=== PATIENT | female | born 1990 | race Caucasian/White ===

== ENCOUNTER 2024-02-03 23:35 | Inpatient (IN) | payer OTHER ==
[~2024-02-03] VITALS: Ht 165.1 cm; Wt 106.8 kg
[~2024-02-03 23:35] MED LIST: ACYC800; ALBU3IS INH; ALBU90OI INH; CEPH500 PO; CIPR500 PO; DOXY100 PO; HYDACE5 PO; HYDACE5325 PO; MAGCIT300 PO; METR500 PO; NAPR500 PO; ONDA4 PO; PENVK500 PO; PHENA100 PO; PRED20 PO; PROM25 PO; RXCLIN PO; RXHYDACE PO; SULTRIDS PO; TRAM50 PO
[2024-02-04] VITALS (21 sets, daily range): BP systolic 107–145; BP diastolic 59–97
[2024-02-04 00:08] LABS: BASOPHILS ABSOLUTE AUTO 0.06 K/mm3 (0.00-0.23); BASOPHILS PERCENT AUTO 0 % (0-2); EOSINOPHILS PERCENT AUTO 0 % (0-6); Hematocrit 38.8 % (33.0-51.0); Hemoglobin 13.3 g/dL (11.5-16.0); IMMATURE GRAN ABSOLUTE AUTO 0.12 K/mm3 (0.00-0.10); IMMATURE GRAN PERCENT AUTO 1 % (0-1); LYMPHOCYTES ABSOLUTE AUTO 1.12 K/mm3 (0.84-5.20); LYMPHOCYTES PERCENT AUTO 7 % (21-46); MONOCYTES ABSOLUTE AUTO 0.33 K/mm3 (0.16-1.47); MONOCYTES PERCENT AUTO 2 % (4-13); Mean Corpuscular HGB 29.6 pg (26.0-34.0); Mean Corpuscular HGB Conc 34.3 g/dL (31.5-36.5); Mean Corpuscular Volume 86 fL (80-100); Mean Platelet Volume 10.6 fL (9.1-12.4); NEUTROPHILS ABSOLUTE AUTO 13.78 K/mm3 (1.96-9.15); NEUTROPHILS PERCENT AUTO 89 % (41-73); Platelet Count 184 K/mm3 (150-400); RDW Coefficient Variation 12.5 % (11.7-14.2); RDW Standard Deviation 39.8 fL (35.1-46.3); White Blood Cell Count 15.41 K/mm3 (4.00-11.30)
[2024-02-04 00:51] LABS: Albumin, Blood 2.9 g/dL (3.4-5.0); Albumin/Globulin Ratio 0.6 (0.8-1.8); Bilirubin, Total 1.1 mg/dL (0.1-1.0); Bun/Creatinine Ratio 14.7 (12.0-20.0); Calcium, Blood 8.5 mg/dL (8.5-10.1); Creatinine, Blood 0.68 mg/dL (0.40-1.00); Potassium, Blood 4.5 mmol/L (3.5-5.5); Total Protein, Blood 7.9 g/dL (6.4-8.2)
[2024-02-04] MEDS ORDERED: NS 1,000 ML IV SCH ×2 (00:55→06:00)
[2024-02-04] MEDS ORDERED: Piperacillin/Tazobactam Sod 4.5 GM in NS 100 ML IV ONE (00:55)
[2024-02-04] MEDS ORDERED: Vancomycin HCL 2,000 MG in NS 500 ML IV ONE ×2 (00:55→01:00)
[2024-02-04] MEDS ORDERED: Ondansetron HCl 2 MG / ML 2ML Vial ONE (01:31)
[2024-02-04] MEDS ORDERED: Ondansetron HCl 2 MG / ML 2ML Vial IV ONE (01:35)
[2024-02-04 02:55] LABS: Source, Urine Clean Catch
[2024-02-04 02:58] LABS: Bilirubin, Urine Neg (Neg); Blood, Urine 1+ (Neg); Glucose Qualitative, Urine Neg (Neg); Ketones, Urine Neg (Neg); Leukocyte Esterase, Urine 2+ (Neg); Nitrite, Urine Pos (Neg); Protein, Urine Neg (Neg); Urobilinogen, Urine NORM (Normal)
[2024-02-04 03:03] LABS: Appearance, Urine Clear (Clear); Color, Urine Yellow (P-Yellow)
[2024-02-04 03:14] LABS: Bacteria Mod /hpf; Red Blood Cells, Urine 0-2 /hpf (0-2); Squamous Epithelial Cells Not Seen /hpf (Few); White Blood Cells, Urine 25-50 /hpf (0-5)
[2024-02-04 03:15] LABS: U Amphetamine Screen DETECTED; U Barbituate Screen Not Detected; U Benzodiazapine Screen Not Detected; U Buprenorphine Screen Not Detected; U Cannabinoids Screen Not Detected; U Cocaine Screen Not Detected; U Methadone Screen Not Detected; U Methamphetamine Screen DETECTED; U Opiates Screen Not Detected; U Oxycodone Screen Not Detected; U Phencyclidine Screen Not Detected
[2024-02-04] MEDS ORDERED: Ondansetron 4 MG TAB PO PRN (04:05)
[2024-02-04] MEDS ORDERED: Acetaminophen 325 MG TABLET PO PRN (04:10)
[2024-02-04] MEDS ORDERED: NS 1,000 ML IV ONE (05:00)
[2024-02-04] MEDS ORDERED: FentaNYL Citrate 50 MCG/ML 2 ML Injection IV PRN (05:50)
[2024-02-04] MEDS ORDERED: Naloxone HCl 0.4MG / ML 1ML Vial IV PRN (05:50)
[2024-02-04] MEDS ORDERED: OxyCODONE HCL 5 MG TAB PO PRN (05:50)
[2024-02-04] MEDS ORDERED: Ketorolac Tromethamine 15mg Vial IV PRN (05:55)
[2024-02-04] MEDS ORDERED: Nicotine 14 MG PATCH TOP SCH (06:00)
--- NOTE | 2024-02-04 06:36 | NUR ---
ARRIVAL TO ICU PT ARRIVED TO ICU 6 AT 0510 VIA ED BED AND WAS ABLE TO AMBULATE TO ICU BED SAFELY. ADMIT FOR CELULITIS OF LLE. SHE IS A/O X4 AND ABLE TO MAKE HER NEEDS KNOWN; FALLS ALSEEP EASILY. SPO2 >98% ON RA. AFEBRILE. HR 90'S. SBP 110'S WITH MAP >65. MILD NAUSEA NOTED. CURRENTLY ON MENSES. CURRENTLY STATING 8/10 PAIN TO LLE; CALL MADE TO DR DUNAWAY WHO PROVIDED ORDERS FOR PRN'S. LLE REDNESS NOTED, AREAS ARE RAISED AND HOT TO TOUCH; PREVIOUS PROVIDER OUTLINED AREA ON LT UPPER THIGH AND IT HAS NOT CHANGED. A VARIETY OF OTHER SCABS AND SCARS NOTED T/O BLE AND BUE. PT STATES THAT SHE USES "STREET" F[facility] OF UNKNOWN QUANTITY EVERY FEW HOURS. CURRENTLY DECLINES NEEDING NICOTINE PATCH; NO LIGHTERS ON PT. CHALLENGING TO ESTABLISH IV ACCESS. POWERGLIDE TO LUE PLACED IN ED AND UNABLE TO DRAW LABS; THE DRESSING CHANGED AND CATHETER PULLED BACK SLIGHTLY AND IV FLUSHED BETTER BUT CONT TO NOT DRAW BACK ENOUGH BLOOD FOR SAMPLE. ANOTHER RN TRIED A SECOND POWERGLIDE IN HER RUE AND WAS UNSUCESSFUL. SECOND NS BOLUS INFUSING NOW. WILL REPORT TO AM RN WHEN AVAILABLE.
--- NOTE | 2024-02-04 07:13 | NUR ---
CARE ASSUMPTION DURING BEDSIDE SHIFT REPORT WITH AGUEDA VILLEGAS THE PT IS CHINO IN BED RESPONDING TO VOICE W MINIMAL VERBAL RESPONSES. PT IS ALERT AT THIS TIME BUT VERY WITHDRAWN MAINTAINING EYE CONTACT BUT HAS MINIMAL VERBAL RESPONSES TO QUESTION. PT'S LLE ASSESSED AT BEDSIDE W DAYO RN AND EXTENSIVE REDNESS IS WITHIN PREVIOUSLY OUTLINED BORDERS. PT'S SPO2 >94% ON RM AIR. BP WNL AND STABLE. MONITIOR SHOWING SR 90'S. PT HAS STRONG BILATERAL PEDAL PULSES. DR. POWELL CAME TO BEDSIDE TO ASSESS THE PT'S LEG. PROVIDER REQUESTING FOLLOW UP LABS.
[2024-02-04] MEDS ORDERED: Piperacillin/Tazobactam Sod 3.375 GM in NS 100 ML IV SCH (08:00)
[2024-02-04 08:58] LABS: BASOPHILS ABSOLUTE AUTO 0.02 K/mm3 (0.00-0.23); BASOPHILS PERCENT AUTO 0 % (0-2); Hematocrit 34.7 % (33.0-51.0); Hemoglobin 11.8 g/dL (11.5-16.0); LYMPHOCYTES ABSOLUTE AUTO 0.73 K/mm3 (0.84-5.20); LYMPHOCYTES PERCENT AUTO 6 % (21-46); MONOCYTES ABSOLUTE AUTO 0.26 K/mm3 (0.16-1.47); MONOCYTES PERCENT AUTO 2 % (4-13); Mean Corpuscular HGB 29.4 pg (26.0-34.0); Mean Corpuscular Volume 86 fL (80-100); Mean Platelet Volume 9.8 fL (9.1-12.4); Platelet Count 138 K/mm3 (150-400); RDW Coefficient Variation 12.5 % (11.7-14.2); RDW Standard Deviation 39.8 fL (35.1-46.3); Red Blood Cell Count 4.02 M/mm3 (3.80-5.20); White Blood Cell Count 11.78 K/mm3 (4.00-11.30)
[2024-02-04] MEDS ORDERED: Lactobacil 2-S.Thermo-Bifido 1 1 Cap PO SCH (09:00)
[2024-02-04] MEDS ORDERED: NS 250 ML IV PRN (09:00)
[2024-02-04 09:08] LABS: EOSINOPHILS PERCENT AUTO 0 % (0-6); IMMATURE GRAN ABSOLUTE AUTO 0.18 K/mm3 (0.00-0.10); IMMATURE GRAN PERCENT AUTO 2 % (0-1); NEUTROPHILS ABSOLUTE AUTO 10.59 K/mm3 (1.96-9.15); NEUTROPHILS PERCENT AUTO 90 % (41-73)
[2024-02-04 09:16] LABS: Albumin, Blood 2.4 g/dL (3.4-5.0); Albumin/Globulin Ratio 0.6 (0.8-1.8); Bilirubin, Total 0.7 mg/dL (0.1-1.0); Bun/Creatinine Ratio 12.8 (12.0-20.0); Calcium, Blood 7.4 mg/dL (8.5-10.1); Creatinine, Blood 0.63 mg/dL (0.40-1.00); Globulin, Blood 4.1 g/dL (2.2-4.0); Total Protein, Blood 6.5 g/dL (6.4-8.2)
[2024-02-04 09:20] LABS: BAND PERCENT MAN 3 % (0-8); BASOPHILS PERCENT MAN 0 % (0-2); EOSINOPHILS PERCENT MAN 0 % (0-6); LYMPHOCYTES ABSOLUTE MAN 0.47 K/mm3 (0.84-5.20); LYMPHOCYTES PERCENT MAN 4 % (21-46); MONOCYTES PERCENT MAN 0 % (4-13); SEG NEUTROPHILS PERCENT MAN 93 % (41-73); TOTAL CELLS COUNTED 100
[2024-02-04] MEDS ORDERED: Potassium Chloride 10 Meq Tablet SA PO ONE (09:30)
[2024-02-04] MEDS ORDERED: Vancomycin HCL 1,250 MG in NS 250 ML IV SCH (10:00)
[2024-02-04] MEDS ORDERED: Nystatin 100,000 Unit/ML Susp 5 ML UDC SS SCH (17:00)
--- NOTE | 2024-02-04 18:20 | NUR ---
DAY SHIFT SUMMARY PT HAS REMAINED ALERT AND ORIENTED THIS SHFIT COMMUNICATING APPROPRIATELY W STAFF. PT'S LLE REMAINS REDDEDNED BUT HAS NOT EXTENDED PAST THE PREVIOUSLY OUTLINED BORDERS. PT'S VSS THIS SHIFT W SPO2 >94% ON RM AIR. BP WNL AND STABLE. MONITOR SHOWING SR 90'S-ST 100'S THIS SHIFT. PT REPORTING MILD NAUSEA THIS SHIFT WHEN ATTEMPTING TO EAT MEALS WHICH SHE CONTRIBUTED TO HER WITHDRAWLING FROM OPIATES. PT UP TO TOILET MULTIPLE TIMES THIS SHIFT TO VOID. PT SLEEPING ON AND OFF THIS SHIFT AND HAD FAMILY AT BEDSIDE WHO WERE UPDATED BY DR. HERNANDEZ EARLIER THIS AFTERNOON. PT MADE SURGICAL TELE STATUS THIS SHIFT. WILL REPORT TO ONCOMING RN.
--- NOTE | 2024-02-04 20:07 | NUR ---
ASSUMED CARE AT 1900 PATIENT IS ALERT AND ORIENTED X4. SP02 97% ON RA, DENIES SOB. HR SR-ST 90s-110. BP STABLE, DENIES CP/PRESSURE. MEDICATED FOR 6/10 PAIN IN LLE. REDNESS TO LLE OUTLINED, UNCHANGED ON UPPER THIGH. MEASURED UPPER THIGH AT 63 CM AND CALF AT 48 CM, SLIGHTLY LARGER THAN PREVIOUS MEASURED. PATIENT ABLE TO REPOSITION SELF. CALL LIGHT IN REACH
[2024-02-04] MEDS ORDERED: Albuterol HFA200 ACT/6.7 GM INH INH PRN (20:35)
[2024-02-05] VITALS (10 sets, daily range): BP systolic 105–134; BP diastolic 56–87
[2024-02-05 01:32] LABS: BASOPHILS ABSOLUTE AUTO 0.01 K/mm3 (0.00-0.23); BASOPHILS PERCENT AUTO 0 % (0-2); EOSINOPHILS ABSOLUTE AUTO 0.01 K/mm3 (0.00-0.68); EOSINOPHILS PERCENT AUTO 0 % (0-6); Hematocrit 33.2 % (33.0-51.0); Hemoglobin 11.3 g/dL (11.5-16.0); IMMATURE GRAN ABSOLUTE AUTO 0.03 K/mm3 (0.00-0.10); IMMATURE GRAN PERCENT AUTO 0 % (0-1); LYMPHOCYTES ABSOLUTE AUTO 1.27 K/mm3 (0.84-5.20); LYMPHOCYTES PERCENT AUTO 13 % (21-46); MONOCYTES ABSOLUTE AUTO 0.41 K/mm3 (0.16-1.47); MONOCYTES PERCENT AUTO 4 % (4-13); Mean Corpuscular HGB 29.4 pg (26.0-34.0); Mean Corpuscular Volume 87 fL (80-100); Mean Platelet Volume 9.9 fL (9.1-12.4); NEUTROPHILS ABSOLUTE AUTO 8.24 K/mm3 (1.96-9.15); NEUTROPHILS PERCENT AUTO 83 % (41-73); Platelet Count 144 K/mm3 (150-400); RDW Coefficient Variation 12.7 % (11.7-14.2); RDW Standard Deviation 40.1 fL (35.1-46.3); Red Blood Cell Count 3.84 M/mm3 (3.80-5.20); White Blood Cell Count 9.97 K/mm3 (4.00-11.30)
[2024-02-05 01:49] LABS: Anion Gap 7 mmol/L (3-11); Blood Urea Nitrogen 7 mg/dL (8-24); Bun/Creatinine Ratio 10.5 (12.0-20.0); CO2, Blood 25 mmol/L (21-32); Calcium, Blood 7.6 mg/dL (8.5-10.1); Chloride, Blood 114 mmol/L (98-108); Creatinine, Blood 0.67 mg/dL (0.40-1.00); Glomerular Filtration Rate 118 (60-); Glucose, Blood 113 mg/dL (70-99); Potassium, Blood 3.2 mmol/L (3.5-5.5); Sodium, Blood 143 mmol/L (136-145); Vancomycin, Trough 15.5 ug/mL (5.0-10.0)
[2024-02-05] MEDS ORDERED: Potassium Chloride 40 MEQ in NS 250 ML IV ONE (04:10)
--- NOTE | 2024-02-05 05:01 | NUR ---
SHIFT SUMMARY PATIENT IS ALERT AND ORIENTED X4. SP02 95% ON 2L VIA NC WHILE SLEEPING, HX ASTHMA AND ALBUTEROL TREATMENT GIVEN. HR SR 90s, BP STABLE, DENIES CP/PRESSURE. MEDICATED FOR LLE PAIN PER EMAR, MEASUREMENTS UNCHANGED SINCE START OF SHIFT. REDNESS REMAINS UNCHNAGED ON UPPER THIGH. MEDICATED FOR NAUSEA. REPLACING POTASSIUM NOW PER HOSPITALIST. CALL LIGHT IN REACH
--- NOTE | 2024-02-05 07:45 | NUR ---
MEASUREMENTS START OF SHIFT MEASUREMENTS OF LLE: THIGH 62 CM, CALF 47.5 CM REDNESS WITHIN PREVIOUS MARKINGS TO UPPER THIGH. REDNESS EXTENDS DOWN LEG THROUGH TOES. STRONG PALPABLE PEDAL PULSE. PT CAN WIGGLES TOES AND MOVES SELF ABOUT IN BED. 7/10 PAIN MEDICATED WITH OXYCODONE. PT SITTING UP IN BED EATING BREAKFAST, USES CALL LIGHT APPROPRIATELY.
[2024-02-05] MEDS ORDERED: Enoxaparin 40 MG/0.4 ML SYR SC SCH (09:00)
[2024-02-05] MEDS ORDERED: LORazepam 2 MG/ML 1ML Injection IV PRN (12:15)
[2024-02-05] MEDS ORDERED: LORazepam 2 MG/ML 1ML Injection IV ONE (12:30)
[2024-02-05] MEDS ORDERED: Buprenorphine HCL/Naloxone HCL 2-0.5MG 1 EA SL ONE ×2 (14:00→15:55)
[2024-02-05] MEDS ORDERED: Piperacillin/Tazobactam Sod 3.375 GM in NS 100 ML IV SCH (14:00)
[2024-02-05] MEDS ORDERED: OxyCODONE HCL 5 MG TAB PO SCH (16:00)
--- NOTE | 2024-02-05 17:23 | NUR ---
SUMMARY/MEASUREMENTS END OF SHIFT MEASUREMENTS: THIGH 60 CM, CALF 46 CM. REDNESS THAT WAS PREVIOUSLY OUTLINED IS RECEDING FROM ORIGINAL LINE. LEG APPEARS ROOM SERVICE BELLHOP RED THAN BEFORE. PALPABLE PEDAL PULSES. PT HAS HAD A POOR APPETITE TODAY. PAIN MANAGED WITH OXYCODONE. STARTED ON SUBOXONE TODAY. UP TO BATHROOM WITH STANDBY ASSIST MANAGING LINES. PT WILL BE TRANSFERED TO MEDICAL FLOOR ROOM 339.
[2024-02-05] MEDS ORDERED: FentaNYL Citrate 50 MCG/ML 2 ML Injection IV PRN (17:30)
--- NOTE | 2024-02-05 18:10 | NUR ---
PT ARRIVED TO ROOM JUST PRIOR TO THIS NOTE AT 1644 VIA WHEELCHAIR, WITH JENI RN ESCORT. PT IMMEDIATELY GOT INTO SHOWER WITHOUT POWERGLIDE BEING WRAPPED FOR PROTECTION. DR HERNANDEZ CALLED AND STATED THAT THIS PATIENT SHOULD NOT HAVE BEEN TRANSFERRED TO THIS FLOOR. CHARGE NURSE NOTIFIED.
--- NOTE | 2024-02-05 19:18 | NUR ---
DURING REPORT TO MEDICAL SCRIBE NURSE, PT LEFT ROOM WITH A BRUSH AND TELE UNIT IN HAND. THIS NURSE ASKED WHERE SHE WAS GOING. SHE SAID "FOR A WALK." THIS NURSE SAID, "PLEASE DO NOT LEAVE THE FLOOR." THE PT SAID "OKAY."
--- NOTE | 2024-02-05 19:25 | NUR ---
190: Patient ambulating in hallway carrying hairbrush, personal belongings. Day shift RN addressed patient, requested they make sure to stay on floor during ambulation, which patient verbally agreed to. 1914: Unit charge nurse [place] notified via [employer] that person matching this patient's description wearing hospital gown was observed getting into passenger car and leaving hospital premises. At time of patient leaving unit, she was wearing hospital telemetry unit and had a Powerglide IV in place.
[2024-02-06] MEDS ORDERED: Buprenorphine HCL/Naloxone HCL 2-0.5MG 1 EA SL ONE (12:00)
[2024-02-07] MEDS ORDERED: Buprenorphine HCL/Naloxone HCL 2-0.5MG 1 EA SL ONE ×2 (09:00→21:00)
[2024-02-08] MEDS ORDERED: Buprenorphine HCL/Naloxone HCL 2-0.5MG 1 EA SL ONE (09:00)
[2024-02-08] MEDS ORDERED: Buprenorphine HCL/Naloxone HCL 8MG-2MG Tab SL SCH (21:00)
[2024-02-10] MEDS ORDERED: Buprenorphine HCL/Naloxone HCL 2-0.5MG 1 EA SL SCH (21:00)
[2024-02-13] MEDS ORDERED: Buprenorphine HCL/Naloxone HCL 8MG-2MG Tab SL SCH ×2 (09:00→21:00)
== END 2024-02-05 19:54 | disposition left against medical advice (07) | DRG 871 ==
LOC: ER 23:35 → ICUE 02-04 04:26 → MEDS 02-05 17:52
PROVIDERS: Emergency Medicine; Family Medicine; Student in an Organized Health Care Education/Training Program; ADMIT Student in an Organized Health Care Education/Training Program
DX: A41.9 Sepsis, unspecified organism (principal); G92.8 Other toxic encephalopathy; F11.23 Opioid dependence with withdrawal; E87.1 Hypo-osmolality and hyponatremia; L03.116 Cellulitis of left lower limb; R82.90 Unspecified abnormal findings in urine; E87.6 Hypokalemia; R65.20 Severe sepsis without septic shock; F17.210 Nicotine dependence, cigarettes, uncomplicated; Z71.51 Drug abuse counseling and surveillance of drug abuser; Z79.899 Other long term (current) drug therapy; F15.10 Other stimulant abuse, uncomplicated; Z53.29 Procedure and treatment not carried out because of patient's decision for other reasons
CPT/HCPCS: 73701; 80048; 80053; 80202; 81001; 82550; 83605; 85025; 85651; 86141; 87040; 87086; 94640; 94664; 94762; 96365-59; 96367; 96375-59; 99285-25; A9270; C1751; J0572; J1885; J2060; J2405; J2543; J3010; J3370; J3480; J7030; J7040; J7050; Q9967

== ENCOUNTER 2024-03-14 22:58 | Emergency (ER) | payer OTHER ==
[~2024-03-14] VITALS: Ht 172.7 cm; Wt 99.9 kg
[2024-03-15] MEDS ORDERED: Vancomycin HCL 1,750 MG in NS 500 ML IV ONE (00:05)
[2024-03-15] MEDS ORDERED: Ketorolac Tromethamine 15mg Vial IM ONE (00:25)
[2024-03-15 00:33] VITALS: BP 138/91
[2024-03-15] MEDS ORDERED: NS 1,000 ML IV SCH (23:55)
== END 2024-03-15 00:53 | disposition left against medical advice (07) ==
LOC: ER 22:58
DX: L03.113 Cellulitis of right upper limb (principal); A41.9 Sepsis, unspecified organism; R00.0 Tachycardia, unspecified; J45.909 Unspecified asthma, uncomplicated; Z88.5 Allergy status to narcotic agent
CPT/HCPCS: 99283; J3370; J7040

== ENCOUNTER 2024-03-15 14:24 | Emergency (ER) | payer OTHER ==
[~2024-03-15] VITALS: Ht 165.1 cm; Wt 90.7 kg
[2024-03-15 15:30] LABS: BASOPHILS ABSOLUTE AUTO 0.03 K/mm3 (0.00-0.23); BASOPHILS PERCENT AUTO 0 % (0-2); EOSINOPHILS PERCENT AUTO 0 % (0-6); Hematocrit 39.2 % (33.0-51.0); Hemoglobin 13.5 g/dL (11.5-16.0); IMMATURE GRAN ABSOLUTE AUTO 0.06 K/mm3 (0.00-0.10); IMMATURE GRAN PERCENT AUTO 1 % (0-1); LYMPHOCYTES PERCENT AUTO 9 % (21-46); MONOCYTES ABSOLUTE AUTO 0.62 K/mm3 (0.16-1.47); MONOCYTES PERCENT AUTO 6 % (4-13); Mean Corpuscular HGB 29.1 pg (26.0-34.0); Mean Corpuscular HGB Conc 34.4 g/dL (31.5-36.5); Mean Corpuscular Volume 85 fL (80-100); Mean Platelet Volume 9.7 fL (9.1-12.4); NEUTROPHILS ABSOLUTE AUTO 9.43 K/mm3 (1.96-9.15); NEUTROPHILS PERCENT AUTO 85 % (41-73); Platelet Count 205 K/mm3 (150-400); Red Blood Cell Count 4.64 M/mm3 (3.80-5.20); White Blood Cell Count 11.14 K/mm3 (4.00-11.30)
[2024-03-15] MEDS ORDERED: Ketorolac Tromethamine 15mg Vial IV ONE (15:40)
[2024-03-15] MEDS ORDERED: Clindamycin 600mg in D5W 50 ML IV ONE (15:40)
[2024-03-15] MEDS ORDERED: NS 1,000 ML IV SCH (15:40)
[2024-03-15 15:50] LABS: Albumin, Blood 3.1 g/dL (3.4-5.0); Albumin/Globulin Ratio 0.5 (0.8-1.8); Bilirubin, Total 0.7 mg/dL (0.1-1.0); Bun/Creatinine Ratio 20.3 (12.0-20.0); Creatinine, Blood 0.59 mg/dL (0.40-1.00); Globulin, Blood 6.2 g/dL (2.2-4.0); Potassium, Blood 3.3 mmol/L (3.5-5.5); Total Protein, Blood 9.3 g/dL (6.4-8.2)
[2024-03-15] MEDS ORDERED: HYDROmorphone HCl/Pf 1MG SYR IV ONE (16:55)
[2024-03-15 18:22] VITALS: BP 139/95
== END 2024-03-15 18:22 | disposition home or self-care (01) ==
LOC: ER 14:24
PROVIDERS: Physician Assistant
DX: L03.113 Cellulitis of right upper limb (principal); J45.909 Unspecified asthma, uncomplicated; Z88.5 Allergy status to narcotic agent
CPT/HCPCS: 36415; 73201; 80053; 83605; 85025; 87040; 96365-59; 96375; 99284-25; J1170; J1885; J7030; Q9967

== ENCOUNTER 2025-05-21 04:08 | Emergency (ER) | payer OTHER ==
[~2025-05-21] VITALS: Ht 165.1 cm; Wt 89.8 kg
[2025-05-21] MEDS ORDERED: RX Prepack 2 Sprays Naloxone HCL 4 MG/SPRAY UD ONE (05:15)
[2025-05-21 06:00] VITALS: BP 155/107
== END 2025-05-21 06:11 | disposition home or self-care (01) ==
LOC: ER 04:08
DX: F15.90 Other stimulant use, unspecified, uncomplicated (principal); T40.415A Adverse effect of fentanyl or fentanyl analogs, initial encounter; J45.909 Unspecified asthma, uncomplicated
CPT/HCPCS: 99284; A9270